=== PATIENT | female | born 1965 | race Caucasian/White ===

== ENCOUNTER → 2016-12-02 | Outpatient (REF) | payer BC, OTHER ==
[2016-12-02 12:42] LABS: MEAN CORPUSCULAR HGB CONC 34.4 g/dL (31.0-37.0); MEAN CORPUSCULAR VOLUME 92 FL (80-100); MEAN PLATELET VOLUME 10.5 FL (6.0-9.5); PLATELET COUNT 245 10^3uL (150-450); WHITE BLOOD COUNT 3.81 10^3uL (4.0-11.0)
[2016-12-02 12:44] LABS: ALBUMIN 4.6 g/dL (3.4-5.0); ANION GAP 16.3 MEQ/L (3-15); TOTAL PROTEIN 7.5 g/dL (6.4-8.5)
[2016-12-02 12:51] LABS: MEAN CORPUSCULAR HEMOGLOBIN 31.5 PG (26.0-34.0)
[2016-12-02 13:09] LABS: BAND NEUTROPHILS % 0 % (0-6); EOSINOPHILS % 5 % (0-4); LYMPHOCYTES # 1.8 #; MONOCYTES # 0.1 #; MONOCYTES % 2 % (3-11); RBC MORPH NORMAL (NORMAL); SEGMENTED NEUTROPHILS % 44 % (51-67); TOTAL CELLS COUNTED 100
== END ==
LOC: LAB 11:30
PROVIDERS: ATTEND Family Medicine
DX: M15.8 Other polyosteoarthritis (principal); M54.16 Radiculopathy, lumbar region; G89.29 Other chronic pain; F41.1 Generalized anxiety disorder; Y04.1XXA Assault by human bite, initial encounter
CPT/HCPCS: 80053; 85025

== ENCOUNTER → 2016-12-16 | Outpatient (REF) | payer BC, OTHER ==
[2016-12-16 17:31] LABS: AMYLASE* 58 U/L (25-115); LIPASE* 68 U/L (23-300)
[2016-12-16 17:42] LABS: BILIRUBIN,URINE Negative (Negative); CLARITY,URINE Clear; COLOR,URINE Yellow; GLUCOSE, URINE (UA) Negative (Negative); LEUKOCYTE ESTERASE ,URINE Negative (Negative); UROBILINOGEN,URINE 0.2 mg/dL (0.2-1.0)
== END ==
LOC: LAB 16:45
PROVIDERS: ATTEND Family Medicine
DX: R07.89 Other chest pain (principal); M15.8 Other polyosteoarthritis; R10.13 Epigastric pain; G89.29 Other chronic pain; F41.1 Generalized anxiety disorder
CPT/HCPCS: 80061; 81003; 82150; 83690; 85379; 85652; 86140